=== PATIENT | female | born 1985 | race Caucasian/White ===

== ENCOUNTER 2017-02-11 16:11 | Emergency (ER) | payer BC ==
[2017-02-11 16:24] VITALS: BP 112/74
--- NOTE | 2017-02-11 16:37 | EDM.PDOC ---
ED HPI GENERAL MEDICAL PROBLEM - General Chief Complaint: Abdominal Pain Stated Complaint: ABDOMINAL PAIN Time Seen by Provider: 02/11/17 16:46 Source of Information: Reports: Patient History Limitations: Reports: No Limitations - History of Present Illness INITIAL COMMENTS - FREE TEXT/NARRATIVE: 31-year-old female presents to the ED with gradually worsening abdominal pain over the last 6-7 days. By history she has extensive endometriosis with multiple laparoscopic surgeries for fulguration and cauterization. Patient has had 2 previous pregnancies and does not contemplate further test she was told she would end up with an ectopic. She is on permanent control and hasn't had a period for one year. She takes a break every 3 months with dummy pills per week but has not for had any withdrawal bleeding. She states she feels bloated she has intense enough abdominal pain that she had to stay home from work one day last week. No blood per rectum. Stools can either be diarrhea the pain is really bad or a bit on the constipated side. Sometimes pain at terminal end of voiding suggesting it may be some involvement of the posterior wall of the bladder. He has had previous appendectomy is one of her surgeries. 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 - Related Data Allergies Allergy/AdvReac Type Severity Reaction Status Date / Time morphine Allergy Anaphylactic Verified 02/11/17 16:24 Shock Penicillins Allergy Anaphylactic Verified 02/11/17 16:24 Shock Home Meds: Home Meds Levonorgestrel-Ethin Estradiol [[place]-28 Tablet] 1 tab PO DAILY 02/11/17 [ History] Past Medical History HEENT History: Reports: Impaired Vision Other HEENT History: wears corrective lenses 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: Endometriosis, Polycystic Ovaries : 2 Para: 2 Other OB/BYN History: left ovary removed Neurological History: Reports: Migraines Hematologic History: Reports: Anemia - Past Surgical History GI Surgical History: Reports: Appendectomy Social & Family History - Tobacco Use Smoking Status *Q: Current Every Day Smoker Years of Tobacco use: 2 Packs/Tins Daily: 0.4 Used Tobacco, but Quit: No Second Hand Smoke Exposure: No - Caffeine Use Caffeine Use: Reports: Coffee - Recreational Drug Use Recreational Drug Use: No - Living Situation & Occupation Living situation: Reports: Occupation: Employed ED ROS GENERAL - Review of Systems Review Of Systems: See Below Constitutional: Denies: Fever, Chills, Malaise, Weakness, Fatigue, Decreased Appetite, Weight Loss HEENT: Reports: No Symptoms Respiratory: Reports: No Symptoms Cardiovascular: Reports: No Symptoms Endocrine: Reports: No Symptoms GI/Abdominal: Reports: Abdominal Pain (See history of present illness), Constipation (Intermittently. Intermittently.), Diarrhea. Denies: Hematemesis, Hematochezia, Mucous in Stool, Nausea, Stool Incontinence, Vomiting : Reports: Frequency, Pain. Denies: Irregular Menses, Urgency, Urinary Retention Musculoskeletal: Reports: No Symptoms (Terminal dysuria at times) Skin: Reports: No Symptoms Neurological: Reports: No Symptoms Psychiatric: Reports: No Symptoms Hematologic/Lymphatic: Reports: No Symptoms Immunologic: Reports: No Symptoms ED EXAM, GI/ABD - Physical Exam Exam: See Below Exam Limited By: No Limitations General Appearance: Alert, WD/WN, No Apparent Distress Respiratory/Chest: No Respiratory Distress, Lungs Clear, Normal Breath Sounds, No Accessory Muscle Use Cardiovascular: Normal Peripheral Pulses, Regular Rate, Rhythm, No Edema, No Gallop, No Murmur GI/Abdominal: Hypoactive Bowel Sounds, Tenderness, Other (Palpable right hemicolon particularly the cecum. The left colon I could not palpate.). No: Guarding (Primarily right lower quadrant with no guarding rebound or rigidity.) , Rebound, Rigidity, Hepatomegaly, Splenomegaly Back Exam: Normal Inspection, Full Range of Motion. No: CVA Tenderness (L), CVA Tenderness (R) Extremities: Normal Inspection, Normal Range of Motion, Non-Tender, No Pedal Edema, Normal Capillary Refill Neurological: Alert, Oriented, CN II-XII Intact, Normal Cognition, Normal Gait, Normal Reflexes Psychiatric: Normal Affect, Normal Mood Skin Exam: Warm, Dry, Intact, Normal Color, No Rash Course - Vital Signs Last Recorded V/S: Last Vital Signs Temp 37.1 C 02/11/17 16:21 Pulse 64 02/11/17 16:21 Resp 18 02/11/17 16:21 BP 112/74 02/11/17 16:21 Pulse Ox 100 02/11/17 16:21 - Orders/Labs/Meds Orders: Active Orders 24 hr Category Date Time Status Abdomen 1V Flat [CR] Stat Exams 02/11/17 16:46 Taken Pelvis Non OB Comp [US] Stat Exams 02/11/17 17:18 Ordered Labs: Laboratory Tests 02/11/17 02/11/17 Range/Units 17:20 17:20 Urine Color Yellow (Yellow) Urine Appearance Slt cloudy H (Clear) Urine pH 6.0 (5.0-8.0) Ur Specific [place] > or = 1.030 (1.005-1.030) Urine Protein Negative (Negative) Urine Glucose (UA) Negative (Negative) Urine Ketones Negative (Negative) Urine Occult Blood Trace-intact H (Negative) Urine Nitrite Negative (Negative) Urine Bilirubin Negative (Negative) Urine Urobilinogen 0.2 (0.2-1.0) Ur Leukocyte Esterase Negative (Negative) Urine RBC 5-10 H (0-5) /hpf Urine WBC 0-5 (0-5) /hpf Ur Epithelial Cells 5-10 H (0-5) /hpf Urine Bacteria Few (FEW) /hpf Urine Mucus Moderate H (FEW) /hpf Urine HCG, Qual Negative (NEGATIVE) - Radiology Interpretation Free Text/Narrative:: 31-year-old female presents the ED with increasing lower abdominal pain primarily suprapubically and right lower quadrant over the last week. She has a history of extensive endometriosis having had greater than 12 surgeries for fulguration and cauterization of endometrial tissue. She has had 2 pregnancies and told not to get again due to the high risk of ectopic . She had a very large hemorrhagic cyst removed from the left ovary and she's not sure how much of the left ovary remains. She's had previous appendectomy. She has some terminal dysuria without urgency frequency. Bowel movements can be anywhere from diarrhea to constipation depending on the severity of the pain. On examination bowel sounds are very quiet sent. I can palpate the right hemicolon but not the left. There is no guarding or rebound tenderness. Tenderness in the right lower quadrant but appears to be mild at this time. Plan urinalysis KUB to be done first and likely pelvic ultrasound transvaginally. - Re-Assessments/Exams Free Text/Narrative Re-Assessment/Exam: 02/11/17: 17:18: Will order transvaginal ultrasounds have a look at the right ovary to see if there is a endometrial cyst. Patient so advised. She was advised the x-ray reveals a fair amount of stool in the right hemicolon but this may not be the whole cause of her recurrent lower abdominal pain. The urinalysis was essentially normal. Urine hCG was also normal. 02/11/17 18:53 at this time the patient could not be located in her room. Her and her gown and identity band are in the room suggesting that she has left the hospital. This was a note note noted by the optical laboratory technician who went to pick her up for transvaginal ultrasound. Attempts by nursing staff to call the patient met with no communication with her. Therefore the procedure was canceled. Departure - Departure Time of Disposition: 18:35 Disposition: Eloped 07 Condition: Fair Clinical Impression: Pelvic pain, Constipation by delayed colonic transit, Endometriosis - Discharge Information Forms: ED Department Discharge Additional Instructions: Patient left the hospital before she could have her pelvic ultrasound performed. She never discussed this with the staff . Her down and identification band were found abandoned in her examining room. chief ultrasound technologist went to look for 2 performed the pelvic ultrasound ordered and was unable to locate the patient. Subsequently nursing staff was unable to locate the patient in the department either. Follicles were made on the phone number listed but they were unable to contact the patient. Therefore the patient left or a local the department and no discharge instructions were given to her. - My Orders Last 24 Hours: My Active Orders 02/11/17 16:46 Abdomen 1V Flat [CR] Stat 02/11/17 17:18 Pelvis Non OB Comp [US] Stat - Assessment/Plan Last 24 Hours: My Active Orders 02/11/17 16:46 Abdomen 1V Flat [CR] Stat 02/11/17 17:18 Pelvis Non OB Comp [US] Stat
--- NOTE | 2017-02-12 09:06 | CR ---
Abdomen: Supine view of the abdomen was obtained. Comparison: No previous study. Bowel gas pattern appears normal. Calcifications are seen within the pelvis which are felt compatible with phleboliths. Bony structures are unremarkable. Impression: 1. Nonspecific supine abdominal x-ray. Diagnostic code #2
== END 2017-02-11 18:50 | disposition left against medical advice (07) ==
LOC: JD.ED 16:11
DX: K59.01 Slow transit constipation (principal); N80.9 Endometriosis, unspecified; G43.909 Migraine, unspecified, not intractable, without status migrainosus; F17.210 Nicotine dependence, cigarettes, uncomplicated; Z86.2 Personal history of diseases of the blood and blood-forming organs and certain disorders involving the immune mechanism; Z90.49 Acquired absence of other specified parts of digestive tract; Z88.0 Allergy status to penicillin; Z88.5 Allergy status to narcotic agent
CPT/HCPCS: 74000; 74000-26; 81001; 81025; 99282; 99284

== ENCOUNTER 2017-02-12 15:54 | Emergency (ER) | payer BC ==
[2017-02-12 16:14] VITALS: BP 113/71
[2017-02-12] MEDS ORDERED: Ketorolac 15 MG/ML SDV IVPUSH ONE (16:43)
[2017-02-12] MEDS ORDERED: Sodium Chloride 0.9% 10 ML Syringe FLUSH PRN (16:44)
--- NOTE | 2017-02-12 17:26 | EDM.PDOC ---
ED HPI GENERAL MEDICAL PROBLEM - General Chief Complaint: Abdominal Pain Stated Complaint: ABDOMINAL PAIN Time Seen by Provider: 02/12/17 16:45 Source of Information: Reports: Patient, Old Records (ER visit yesterday- UA and abd flat plate preformed) History Limitations: Reports: No Limitations - History of Present Illness INITIAL COMMENTS - FREE TEXT/NARRATIVE: 31-year-old female presents for evaluation and treatments of lower abdominal and pelvic pain. Patient reports that she's been having pain for about 2 weeks. She was seen in our ER yesterday but eloped. She is very apologetic about this as she states that she had a work-related incident and could not find anyone to let them know she had to leace. She returned today as she was unable to complete an ultrasound yesterday. She is a past medical history of endometriosis and ovarian cysts. She is concerned she has another ovarian cyst today. She reports that the lower abdominal pelvic pain is located on the right side. She states that it does go into her back and into her legs. Reports that the pain comes and goes. Patient reports for 5 days ago she was very sick due to the pain. She has been taking some [id number] medications but does not like to take much Tylenol or Motrin. She denies any fevers, nausea, vomiting, diarrhea or constipation. Patient reports that her last bowel movement was yesterday. She denies any melena or hematochezia. She reports some pain at the end of urination but denies any change in urine odor or color. Patient has a past medical history including ovarian cysts and endometriosis. She reports that her last surgery for endometriosis was in 2014. She is from [place] and that is where she is having majority of her medical care performed. Patient states that she had left oophorectomy and appendectomy. She is currently on oral contraceptives for her endometriosis. She's been on the same oral contraceptive for about 2 years. 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: Endometriosis, Polycystic Ovaries Other OB/BYN History: left ovary removed Neurological History: Reports: Migraines Hematologic History: Reports: Anemia Oncologic (Cancer) History: Reports: Uterine - Past Surgical History GI Surgical History: Reports: Appendectomy Social & Family History - Family History Family Medical History: Unobtainable OBGYN: Reports: Other (See Below) Other OBGYN Family History: endometriosis - Tobacco Use Smoking Status *Q: Current Every Day Smoker Years of Tobacco use: 1 Packs/Tins Daily: 0.2 Used Tobacco, but Quit: No Second Hand Smoke Exposure: No - Caffeine Use Caffeine Use: Reports: None - Recreational Drug Use Recreational Drug Use: No - Living Situation & Occupation Living situation: Reports: Occupation: Employed ED ROS GENERAL - Review of Systems Review Of Systems: See Below Constitutional: Denies: Fever GI/Abdominal: Reports: Abdominal Pain (RLQ). Denies: Constipation, Diarrhea, Hematochezia, Melena, Nausea, Vomiting : Reports: Dysuria, Pain (right sided pelvic pain). Denies: Flank Pain, Hematuria ED EXAM, GENERAL - Physical Exam Exam: See Below Exam Limited By: No Limitations General Appearance: Alert, WD/WN, No Apparent Distress Nose: Normal Inspection Throat/Mouth: Normal Inspection, Normal Voice, No Airway Compromise Respiratory/Chest: No Respiratory Distress, Lungs Clear, Normal Breath Sounds Cardiovascular: Normal Peripheral Pulses, Regular Rate, Rhythm, No Murmur Neurological: Alert, Oriented, Normal Cognition Psychiatric: Normal Affect, Normal Mood Skin Exam: Warm, Dry, Normal Color Course - Vital Signs Last Recorded V/S: Last Vital Signs Temp 36.2 C 02/12/17 16:02 Pulse 98 02/12/17 19:15 Resp 16 02/12/17 19:15 BP 113/71 02/12/17 16:02 Pulse Ox 100 02/12/17 19:15 - Orders/Labs/Meds Labs: Laboratory Tests 02/12/17 02/12/17 Range/Units 16:10 16:10 WBC 7.87 (3.98-10.04) K/mm3 RBC 4.81 (3.98-5.22) M/mm3 Hgb 14.9 (11.2-15.7) gm/L Hct 44.6 (34.1-44.9) % MCV 92.7 (79.4-94.8) fl MCH 31.0 (25.6-32.2) pg MCHC 33.4 (32.2-35.5) g/dl RDW Std Deviation 43.3 (36.4-46.3) fL Plt Count 244 (182-369) K/mm3 MPV 11.7 (9.4-12.3) fl Neut % (Auto) 66.8 (34.0-71.1) % Lymph % (Auto) 21.3 (19.3-51.7) % [place] % (Auto) 6.6 (4.7-12.5) % Eos % (Auto) 4.2 (0.7-5.8) Baso % (Auto) 0.8 (0.1-1.2) % Neut # (Auto) 5.26 (1.56-6.13) K/mm3 Lymph # (Auto) 1.68 (1.18-3.74) K/mm3 [place] # (Auto) 0.52 H (0.24-0.36) K/mm3 Eos # (Auto) 0.33 (0.04-0.36) K/mm3 Baso # (Auto) 0.06 (0.01-0.08) K/mm3 Sodium 139 (136-145) mEq/L Potassium 3.9 (3.5-5.1) mEq/L Chloride 104 (98-107) mEq/L Carbon Dioxide 29 (21-32) mEq/L Anion Gap 9.9 (5-15) BUN 14 (7-18) mg/dL Creatinine 0.9 (0.55-1.02) mg/dL Est Cr Clr Drug Dosing TNP Estimated GFR (MDRD) > 60 (>60) mL/min BUN/Creatinine Ratio 15.6 (14-18) Glucose 96 (74-106) mg/dL Calcium 8.6 (8.5-10.1) mg/dL Total Bilirubin 0.4 (0.2-1.0) mg/dL AST 27 (15-37) U/L ALT 48 (14-59) U/L Alkaline Phosphatase 65 (46-116) U/L Total Protein 7.4 (6.4-8.2) g/dl Albumin 4.0 (3.4-5.0) g/dl Globulin 3.4 gm/dL Albumin/Globulin Ratio 1.2 (1-2) Meds: Medications Discontinued Medications Generic Name Dose Route Start Last Admin Trade Name Tariqq PRN Reason Stop Dose Admin Ketorolac Tromethamine 15 mg 02/12/17 16:43 02/12/17 16:49 Toradol IVPUSH 02/12/17 16:44 15 mg ONETIME ONE Administration Sodium Chloride 10 ml 02/12/17 16:44 02/12/17 16:50 Saline Flush FLUSH 10 ml ASDIRECTED PRN Administration Keep Vein Open - Radiology Interpretation Free Text/Narrative:: Transvaginal non-OB ultrasound impression per Dr. Lewis 1. Previous left oophorectomy 2. Pelvic varicosities. 3. Incidental nabothian cyst. 4. Pelvic ultrasound is otherwise unremarkable. Specifically reports right ovary shows multiple follicles with no large cysts or solid abnormality. Small amount of free fluid is seen and believed to be physiologic. - Re-Assessments/Exams Free Text/Narrative Re-Assessment/Exam: 02/12/17 16:51 Patient reports worsening pain. 15 g IV Toradol ordered for discomfort. Awaiting lab results and ultrasound results. 02/12/17 19:02 Labs include the following. White blood cell count 7.87, hemoglobin 14.9 platelets 244. Sodium 139, potassium 3.9 chloride 104. Anion gap 9.9. Creatinine 0.9. Glucose 96. I reviewed Dr. bower's notes and labs from yesterday. She had a UA which was unremarkable and an urine hCG which was negative. UA, Urine HCG and flat plate of her abdomen were performed before she had to leave due to her work commitment. I reviewed her labs today as well as her ultrasound results. I feel it is the varicose veins in her pelvis causing her discomfort. No large cysts or solid abnormality was seen on her right ovary. I encouraged her to follow-up with her primary care provider in [place]. She is to return home in 1-2 weeks. I encouraged her take [id number] Tylenol or Motrin. She is to return to the ER for symptoms change or worsen. Patient is content with the plan. She was mostly concerned about a cyst on the right ovary. Departure - Departure Time of Disposition: 19:05 Disposition: Home, Self-Care 01 Condition: Good Clinical Impression: Pelvic varices - Discharge Information Instructions: Pelvic Pain, Female, [id number] Referrals: PCP,Not In Area [Primary Care Provider] - Forms: ED Department Discharge Additional Instructions: [id number] Tylenol or Motrin as needed for pain relief. Recommend using a heating pad for additional pain relief. 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 Please return to the ER if your symptoms change or worsen.
--- NOTE | 2017-02-12 18:50 | US ---
Pelvic ultrasound: Multiple real-time images transvaginally and transabdominally. Comparison: No previous study. Uterus is anteverted. Endometrial thickness is normal at 1.2 mm. Incidental nabothian cysts are seen. Mild pelvic varicosities are noted. Left adnexa is unremarkable. Left ovary not seen but patient states left ovary has been removed. Right ovary shows multiple follicles with no larger cyst or solid abnormality. Small amount of free fluid is seen and believed to be physiologic. Measurements: Uterus: Length 6.9 cm, AP height is 3.5 cm, transverse width 5.2 cm Right ovary: 3.9 x 1.8 x 1.7 cm Impression: 1. Previous left oophorectomy. 2. Pelvic varicosities. 3. Incidental nabothian cyst. 4. Pelvic ultrasound is otherwise unremarkable. Diagnostic code #2
== END 2017-02-12 19:10 | disposition home or self-care (01) ==
LOC: JD.ED 15:54
DX: I86.2 Pelvic varices (principal); G43.909 Migraine, unspecified, not intractable, without status migrainosus; F17.210 Nicotine dependence, cigarettes, uncomplicated; Z86.2 Personal history of diseases of the blood and blood-forming organs and certain disorders involving the immune mechanism; Z90.49 Acquired absence of other specified parts of digestive tract; Z88.5 Allergy status to narcotic agent; Z88.0 Allergy status to penicillin; Z79.899 Other long term (current) drug therapy; Z87.440 Personal history of urinary (tract) infections
CPT/HCPCS: 36415; 76830; 80053; 85025; 96374; 99284; J1885; J7050